=== PATIENT | male | born 1990 | race Caucasian/White ===

== ENCOUNTER 2019-01-11 19:35 | Emergency (ER) | payer MEDICAID ==
[~2019-01-11] VITALS: Ht 177.8 cm; Wt 60.3 kg
[2019-01-11 19:44] VITALS: BP 141/92; Ht 177.8 cm; Wt 60.3 kg
== END 2019-01-11 21:40 | disposition home or self-care (01) ==
LOC: ED 19:35
DX: S62.232A Other displaced fracture of base of first metacarpal bone, left hand, initial encounter for closed fracture (principal); J02.9 Acute pharyngitis, unspecified; V87.8XXA Person injured in other specified noncollision transport accidents involving motor vehicle (traffic), initial encounter; Y93.I9 Activity, other involving external motion; Y92.89 Other specified places as the place of occurrence of the external cause; Y99.8 Other external cause status
CPT/HCPCS: J1885; Q0092

== ENCOUNTER 2020-03-10 10:49 | Emergency (ER) | payer MEDICAID | END 2020-03-10 11:35 | disposition left against medical advice (07) | LOC: ED 10:49 | DX: Z53.21 Procedure and treatment not carried out due to patient leaving prior to being seen by health care provider (principal) ==

== ENCOUNTER 2020-03-11 04:51 | Emergency (ER) | payer MEDICAID ==
[~2020-03-11] VITALS: Ht 180.3 cm; Wt 60.3 kg
[2020-03-11 04:59] VITALS: Ht 180.3 cm; Wt 60.3 kg
[2020-03-11 06:54] VITALS: BP 141/85
== END 2020-03-11 06:54 | disposition left against medical advice (07) ==
LOC: ED 04:51
DX: Z53.21 Procedure and treatment not carried out due to patient leaving prior to being seen by health care provider (principal)